=== PATIENT | male | born 1985 | race Two or more races ===

== ENCOUNTER 2019-05-29 17:25 | Emergency (ER) | payer SELFPAY ==
[~2019-05-29] VITALS: Ht 175.3 cm; Wt 69.4 kg
[2019-05-29 17:44] VITALS: BP 145/75
[2019-05-29] MEDS ORDERED: ALBUTEROL FS 2.5 MG/3 ML VIAL.NEB CONTNEB ONE (18:00)
[2019-05-29] MEDS ORDERED: IPRATROPIUM NEB FS 0.5 MG/2.5 ML AMPUL.NEB NEB ONE (18:00)
[2019-05-29] MEDS ORDERED: IPRATROPIUM NEB FS 0.5 MG/2.5 ML AMPUL.NEB ONE (18:29)
[2019-05-29] MEDS ORDERED: ALBUTEROL FS 2.5 MG/3 ML VIAL.NEB ONE (18:29)
== END 2019-05-29 18:58 | disposition home or self-care (01) ==
LOC: ER 17:27
DX: J40 Bronchitis, not specified as acute or chronic (principal); F17.200 Nicotine dependence, unspecified, uncomplicated; Z88.0 Allergy status to penicillin; Z60.2 Problems related to living alone
CPT/HCPCS: 71045-TC

== ENCOUNTER 2019-06-01 00:38 | Emergency (ER) | payer SELFPAY ==
--- NOTE | 2019-06-01 01:01 | NUR ---
CALLED FOR PT IN WAITING ROOM. NO RESPONSE
--- NOTE | 2019-06-01 01:22 | NUR ---
CALLED FOR PT. NO RESPONSE.
--- NOTE | 2019-06-01 01:46 | NUR ---
CALLED PT IN WAITING ROOM. NO RESPONSE.
== END 2019-06-01 01:54 | disposition left against medical advice (07) ==
LOC: ER 00:38
DX: Z53.21 Procedure and treatment not carried out due to patient leaving prior to being seen by health care provider (principal)

== ENCOUNTER 2019-08-14 02:32 | Emergency (ER) | payer SELFPAY ==
[~2019-08-14] VITALS: Ht 175.3 cm; Wt 70.3 kg
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
[2019-08-14] MEDS ORDERED: ONDANSETRON HCL/PF 4 MG/2 ML VIAL ONE ×2 (02:37→03:02)
--- NOTE | 2019-08-14 02:40 | NUR ---
PT TAKEN TO RADIOLOGY VIA [facility]
--- NOTE | 2019-08-14 02:50 | NUR ---
PT RETURNED FROM RADIOLOGY. PT VOMITTED. AWARE.
--- NOTE | 2019-08-14 02:54 | NUR ---
INCIDENT RE[facility] TO [facility]: CASE #[id number]
[2019-08-14] MEDS ORDERED: ONDANSETRON HCL/PF - ER 4 MG/2 ML VIAL IV ONE (03:00)
[2019-08-14] MEDS ORDERED: ONDANSETRON HCL/PF - ER 4 MG/2 ML VIAL IM ONE (03:00)
[2019-08-14] MEDS ORDERED: TDAP [DIPH/PERTUSSIS/TET] 0.5 ML VIAL IM ONE ×2 (03:00→03:06)
[2019-08-14 03:18] VITALS: BP 115/79
[2019-08-14] MEDS ORDERED: LIDOCAINE 1%-EPI 1:100,000 20 ML VIAL ONE (03:45)
--- NOTE | 2019-08-14 03:57 | NUR ---
[employer] AT BEDSIDE
--- NOTE | 2019-08-14 05:08 | NUR ---
IV removed. Catheter intact and site benign. Pressure and 4x4 applied to site. No bleeding noted.Patient discharged to home in stable condition. Written and verbal after care instructions given. Patient verbalizes understanding of instruction.
== END 2019-08-14 05:10 | disposition home or self-care (01) ==
LOC: ER 02:34
DX: S01.01XA Laceration without foreign body of scalp, initial encounter (principal); R51 Headache; F10.10 Alcohol abuse, uncomplicated; F17.200 Nicotine dependence, unspecified, uncomplicated; Y90.9 Presence of alcohol in blood, level not specified; Z88.0 Allergy status to penicillin; Z60.2 Problems related to living alone; Y08.89XA Assault by other specified means, initial encounter; Y93.39 Activity, other involving climbing, rappelling and jumping off; Y92.89 Other specified places as the place of occurrence of the external cause; Y99.8 Other external cause status
CPT/HCPCS: 12001; 70450; 90471; 90715; 96372; 96374; 99284; J2405 ×4; J3490